=== PATIENT | male | born 1975 | race Caucasian/White ===

== ENCOUNTER 2020-07-03 20:00 | Inpatient (IN) | payer OTHER ==
[~2020-07-03] VITALS: Ht 180.3 cm; Wt 214.8 kg
[~2020-07-03 20:00] MED LIST: AMLO10TA8 PO; BC HEADACHE PO; LOSA1TAB22 PO
--- NOTE | 2020-07-03 20:23 | PHYS DOC ---
Past Medical History Past Medical History: Anemia, High Cholesterol, Hypertension Past Surgical History: Tonsillectomy Additional Past Surgical Histo: gastric bypass, Smoking Status: Former Smoker Alcohol Use: Heavy Drug Use: None General Adult EDM: Chief Complaint: CHEST PAIN HPI: HPI: The history was obtained from the patient. Patient is a 41-year-old male with PMH hypertension, morbid obesity, hyperlipidemia, CHF who presents with a chief complaint of shortness of breath. Patient states 3 hours prior to arrival he had sudden onset shortness of breath. He also notes that he drank a pint of whiskey today. He states he did not drink this and attempt to harm himself. 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 He does note some chest pain. He is unable to describe the quality or characteristic of the pain. He states it has been constant. States it is nonradiating however. Denies cough. Does note increased shortness of breath. Unsure of whether his symptoms are worse when he lays flat. Denies vomiting. Denies syncope. Denies any drug usage today. Unsure of why he has heart failure how it developed. Denies any history of blood clot in legs or lungs. Denies any known exposure to coronavirus. Review of Systems: Review of Systems: Constitutional: Denies fever or chills. [] Eyes: Denies change in visual acuity. [] HENT: Denies nasal congestion or sore throat. [] Respiratory: Positive for shortness of Cardiovascular: Positive for chest pain GI: Denies abdominal pain, nausea, vomiting, bloody stools or diarrhea. [] : Denies dysuria. [] Musculoskeletal: Denies back pain or joint pain. [] Integument: Denies rash. [] Neurologic: Denies headache, focal weakness or sensory changes. [] Endocrine: Denies polyuria or polydipsia. [] Lymphatic: Denies swollen glands. [] Psychiatric: Denies depression or anxiety. [] Heart Score: Risk Factors: Risk Factors: DM, Current or recent (<one month) smoker, HTN, HLP, family history of CAD, obesity. Risk Scores: Score 0 - 3: 2.5% MACE over next 6 weeks - Discharge Home Score 4 - 6: 20.3% MACE over next 6 weeks - Admit for Clinical Observation Score 7 - 10: 72.7% MACE over next 6 weeks - Early Invasive Strategies Allergies: Allergies: Allergies Coded Allergies Type Severity Reaction Last Updated Verified No Known Drug Allergies 10/27/14 No Physical Exam: PE: Constitutional: Well developed, well nourished, no acute distress, non-toxic appearance. Morbid obesity HENT: Normocephalic, atraumatic, bilateral external ears normal, oropharynx moist, no oral exudates, nose normal. [] Eyes: PERRLA, EOMI, conjunctiva normal, no discharge. [] Neck: Normal range of motion, no tenderness, supple, no stridor. [] Cardiovascular:Heart rate regular rhythm, no murmur [] Lungs & Thorax: Bilateral breath sounds clear to auscultation [] Abdomen: soft, no tenderness, no masses, no pulsatile masses. [] Skin: Warm, dry, no erythema, no rash. [] Back: No tenderness, no CVA tenderness. [] Extremities: No tenderness, no cyanosis, no clubbing, ROM intact, no edema. [] Neurologic: Alert and oriented X 3, normal motor function, normal sensory function, no focal deficits noted. [] Psychologic: Affect normal, judgement normal, mood normal. [] Current Patient Data: Labs: Laboratory Tests Test 07/03/20 21:39 White Blood Count 6.4 x10^3/uL Red Blood Count 4.88 x10^6/uL Hemoglobin 13.3 g/dL Hematocrit 40.0 % Mean Corpuscular Volume 82 fL Mean Corpuscular Hemoglobin 27 pg Mean Corpuscular Hemoglobin Concent 33 g/dL Red Cell Distribution Width 16.7 % Platelet Count 261 x10^3/uL Neutrophils (%) (Auto) 55 % Lymphocytes (%) (Auto) 35 % Monocytes (%) (Auto) 8 % Eosinophils (%) (Auto) 3 % Basophils (%) (Auto) 0 % Neutrophils # (Auto) 3.5 x10^3/uL Lymphocytes # (Auto) 2.2 x10^3/uL Monocytes # (Auto) 0.5 x10^3/uL Eosinophils # (Auto) 0.2 x10^3/uL Basophils # (Auto) 0.0 x10^3/uL Sodium Level 138 mmol/L Potassium Level 2.2 mmol/L Chloride Level 98 mmol/L Carbon Dioxide Level 27 mmol/L Anion Gap 13 Blood Urea Nitrogen 18 mg/dL Creatinine 1.1 mg/dL Estimated GFR (Cockcroft-Gault) 73.1 BUN/Creatinine Ratio 16 Glucose Level 98 mg/dL Calcium Level 8.5 mg/dL Magnesium Level 1.9 mg/dL Total Bilirubin 0.3 mg/dL Aspartate Amino Transf (AST/SGOT) 64 U/L Alanine Aminotransferase (ALT/SGPT) 89 U/L Alkaline Phosphatase 93 U/L [id number] Natriuretic Peptide 34 pg/mL Total Protein 7.3 g/dL Albumin 3.6 g/dL Albumin/Globulin Ratio 1.0 Lipase 299 U/L Ethyl Alcohol Level 250 mg/dL Current Medications Medications (Trade) Dose Ordered Sig/Josh Route PRN Reason Start Time Stop Time Status Last Admin Dose Admin Magnesium Sulfate 50 ml @ 50 mls/hr 1X ONCE IV 07/03/20 23:00 07/03/20 23:59 DC 07/03/20 23:54 Potassium Chloride/Dextrose/ Sod Cl 1,000 ml @ 1,000 mls/hr Q1H ONCE IV 07/03/20 22:30 07/03/20 23:29 UNV Potassium Chloride/Water 100 ml @ 100 mls/hr Q1H IV 07/03/20 23:00 07/04/20 04:59 07/03/20 23:04 Nitroglycerin (Nitrostat) 0.4 mg PRN Q5MIN PRN SL CHEST PAIN 07/03/20 22:30 Iohexol (Omnipaque 350 Mg/ml) 100 ml 1X ONCE IV 07/03/20 23:00 07/03/20 23:01 DC 07/03/20 23:29 Info (CONTRAST GIVEN -- Rx MONITORING) 1 each PRN DAILY PRN MC SEE COMMENTS 07/03/20 22:45 07/05/20 22:44 Ringer's Solution 1,000 ml @ 1,000 mls/hr 1X ONCE IV 07/03/20 23:00 07/03/20 23:59 DC 07/03/20 23:05 EKG: EKG: EKG consistent with normal sinus rhythm. Ventricular rate of 64 bpm. Q waves noted in lead III. Slight ST flattening noted in lead III as well. No ST segment elevation appreciated. [] Radiology/Procedures: Radiology/Procedures: [][facility] [address] [place] [address] IMAGING REPORT Signed PATIENT: FABIOLA MCQUEEN ACCOUNT: [id number] : 1975 LOCATION: ER AGE: 44 SEX: M EXAM STATUS: REG ER ORD. PHYSICIAN: VINAY CARVALHO DO REASON: SOB with h/x CHF. r/o pulm edema vs. PE OMNI 350, 100 ML IV PROCEDURE: CT ANGIOGRAPHY CHEST Study: CT CHEST WITH CONTRAST - PULMONARY ANGIOGRAM History: Shortness of breath. CHF. Pulmonary embolism. Comparison: None. Technique: Helical CT of the chest performed after the administration of 100 cc Omnipaque 350 intravenous contrast and timed for angiographic evaluation of the pulmonary arteries per PE protocol. Coronal and sagittal 3D MIP reformations were obtained. One or more of the following individualized dose reduction techniques were utilized for this examination: 1. Automated exposure control 2. Adjustment of the mA and/or kV according to patient size 3. Use of iterative reconstruction technique. Findings: Pulmonary Arteries: Limited study for the detection of pulmonary emboli due to a combination of patient body habitus and bolus timing. No main or lobar embolism is seen. The main pulmonary artery is dilated at approximately 4.1 cm transverse. Heart/Systemic Vasculature: Nonaneurysmal aorta. The visualized great vessels are unremarkable. Mediastinum: Small hiatal hernia. No pathologically enlarged lymph nodes. Lungs: No localized airspace infiltrate. No abnormal thickening of the interlobular septa. No pleural effusion or pneumothorax. The central airways are patent. A few tiny nodules are seen but do not meet size criteria for dedicated follow-up. 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 Neck/Axilla/Body Wall: Portions of the body wall are excluded from the [id number]. No acute abnormality is seen. Upper Abdomen: Hepatic steatosis. Mildly enlarged spleen. Surgically absent gallbladder. Bariatric surgery. Bones: No acute or aggressive osseous process is well identified but assessment is limited. Scattered Schmorl's nodes. Straightening of thoracic kyphosis. Miscellaneous: None. IMPRESSION: 1. Limited study due to patient body habitus and bolus timing. No main or lobar pulmonary embolus and is seen. The smaller pulmonary arteries are not well assessed. 2. Dilated main pulmonary artery as can be seen with underlying pulmonary hypertension. 3. No CT manifestations of decompensated congestive heart failure. 4. Hepatic steatosis and mild splenomegaly. Electronically signed by: BA MALAVE MD (07/04/2020 12:18 AM) [id number] DICTATED and SIGNED BY: BA MALAVE MD DATE: 07/04/20 0018 Course & Med Decision Making: Course & Med Decision Making Pertinent Labs and Imaging studies reviewed. (See chart for details) Patient is a 43-year-old male who presents with complaint of shortness of breath chest pain. Initial vital signs grossly unremarkable. EKG without ischemic changes. 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 Although there was poor bolus timing of the contrast material no obvious signs of PE were noted. He does have a dilated pulmonary artery however I believe this is most likely related to heart failure. Low suspicion for large PE given his normal vital signs. Patient found to have low potassium. Replacement of this was started. He was given 2 g of magnesium. Alcohol level noted to be elevated. Patient is low potassium could be related to diuretic usage or poor oral intake. Patient will be hospitalized for further care. Dragon Disclaimer: Dragon Disclaimer: This electronic medical record was generated, in whole or in part, using a voice recognition dictation system. Departure Departure Impression: Primary Impression: Hypokalemia Additional Impressions: Alcohol intoxication Qualified Codes: F10.929 - Alcohol use, unspecified with intoxication, unspecified Chest pain Qualified Codes: R07.9 - Chest pain, unspecified Disposition: ADMITTED INPATIENT Condition: STABLE Referrals: NO PCP (PCP) Justicifation of Admission Dx: Justifications for Admission: Justification of Admission Dx: Yes Chronic Renal Failure: Electrolyte Abnormality Angina: Cresendo Worsening of Sym VINAY CARVALHO DO Jul 03, 2020 20:23
--- NOTE | 2020-07-03 20:38 | RAD ---
CHEST AP ONLY History: Reason: CP / Spl. Instructions: / History: Comparison: October 27, 2014 Findings: Low lung volumes. Enlarged cardiac size although portable technique accentuates cardiac size, unchanged. No consolidation or pleural effusion. No pneumothorax. Impression: 1. Low lung volumes. Electronically signed by: Andrés Fajardo DO (07/03/2020 8:35 PM) [facility] [place]
[2020-07-03 21:56] LABS: BASO % 0 % (0-3); EOS # 0.2 x10^3/uL (0.0-0.7); EOS % 3 % (0-3); HEMOGLOBIN 13.3 g/dL (13.0-17.5); LYMPH # 2.2 x10^3/uL (1.0-4.8); LYMPH % 35 % (24-48); MEAN CORPUSCULAR HEMOGLOBIN 27 pg (25-35); MEAN CORPUSCULAR HGB CONC 33 g/dL (31-37); MEAN CORPUSCULAR VOLUME 82 fL (79-100); MONO # 0.5 x10^3/uL (0.0-1.1); MONO % 8 % (0-9); NEUT # 3.5 x10^3/uL (1.8-7.7); NEUT % 55 % (31-73); PLATELET COUNT 261 x10^3/uL (140-400); RED BLOOD COUNT 4.88 x10^6/uL (4.30-5.70); RED CELL DISTRIBUTION WIDTH 16.7 % (11.5-14.5); WHITE BLOOD COUNT 6.4 x10^3/uL (4.0-11.0)
[2020-07-03 22:13] LABS: ALBUMIN 3.6 g/dL (3.4-5.0); CALCIUM 8.5 mg/dL (8.5-10.1); CREATININE 1.1 mg/dL (0.7-1.3); GFR 73.1; TOTAL BILIRUBIN 0.3 mg/dL (0.2-1.0); TOTAL PROTEIN 7.3 g/dL (6.4-8.2)
[2020-07-03 22:21] LABS: POTASSIUM 2.2 mmol/L (3.5-5.1)
[2020-07-03] MEDS ORDERED: POTASSIUM CL 20MEQ D5-0.2%NACL 1,000 ML IV ONE (22:30)
[2020-07-03] MEDS ORDERED: NITROGLYCERIN SUBLINGUAL 0.4 MG BOTTLE OF 25. SL PRN (22:30)
[2020-07-03] MEDS ORDERED: CONTRAST GIVEN. MC PRN (22:45)
[2020-07-03] MEDS ORDERED: IV RINGERS,LACTATED 1000ML 1,000 ML IV ONE (23:00)
[2020-07-03] MEDS ORDERED: IOHEXOL 350 MG/ML 100 ML VIAL. IV ONE (23:00)
[2020-07-03] MEDS ORDERED: MAGNESIUM SULFATE 2GM 50 ML IV ONE (23:00)
[2020-07-03] MEDS: POTASSIUM CHLORIDE 10MEQ 100 ML IV SCH (23:04)
--- NOTE | 2020-07-04 00:21 | RAD ---
Study: CT CHEST WITH CONTRAST - PULMONARY ANGIOGRAM History: Shortness of breath. CHF. Pulmonary embolism. Comparison: None. Technique: Helical CT of the chest performed after the administration of 100 cc Omnipaque 350 intravenous contrast and timed for angiographic evaluation of the pulmonary arteries per PE protocol. Coronal and sagittal 3D MIP reformations were obtained. One or more of the following individualized dose reduction techniques were utilized for this examination: 1. Automated exposure control 2. Adjustment of the mA and/or kV according to patient size 3. Use of iterative reconstruction technique. Findings: Pulmonary Arteries: Limited study for the detection of pulmonary emboli due to a combination of patient body habitus and bolus timing. No main or lobar embolism is seen. The main pulmonary artery is dilated at approximately 4.1 cm transverse. Heart/Systemic Vasculature: Nonaneurysmal aorta. The visualized great vessels are unremarkable. Mediastinum: Small hiatal hernia. No pathologically enlarged lymph nodes. Lungs: No localized airspace infiltrate. No abnormal thickening of the interlobular septa. No pleural effusion or pneumothorax. The central airways are patent. A few tiny nodules are seen but do not meet size criteria for dedicated follow-up. Solutions Operator nodule at the far inferior left lower lobe on image 130 series 5. Neck/Axilla/Body Wall: Portions of the body wall are excluded from the [id number]. No acute abnormality is seen. Upper Abdomen: Hepatic steatosis. Mildly enlarged spleen. Surgically absent gallbladder. Bariatric surgery. Bones: No acute or aggressive osseous process is well identified but assessment is limited. Scattered Schmorl's nodes. Straightening of thoracic kyphosis. Miscellaneous: None. IMPRESSION: 1. Limited study due to patient body habitus and bolus timing. No main or lobar pulmonary embolus and is seen. The smaller pulmonary arteries are not well assessed. 2. Dilated main pulmonary artery as can be seen with underlying pulmonary hypertension. 3. No CT manifestations of decompensated congestive heart failure. 4. Hepatic steatosis and mild splenomegaly. Electronically signed by: BA MALAVE MD (07/04/2020 12:18 AM) [facility]
[2020-07-04] MEDS ORDERED: ONDANSETRON PF 4 MG/2 ML VIAL. IV PRN (00:45)
[2020-07-04] MEDS: POTASSIUM CHLORIDE 10MEQ 100 ML IV SCH ×7 (00:54→21:03)
[2020-07-04] MEDS ORDERED: HYDR-2869 PO (09:23)
[2020-07-04] MEDS ORDERED: FURO-69 PO (09:23)
[2020-07-04] MEDS: ACETAMINOPHEN 500 MG TABLET PO PRN (11:06)
[2020-07-04] MEDS: LIDOCAINE (700MG/PATCH) PATCH. TD SCH (11:07)
[2020-07-04] MEDS ORDERED: POTASSIUM CHLORIDE 20 MEQ TABLET.ER. PO PRN (13:00)
[2020-07-04] MEDS ORDERED: POTASSIUM CHLORIDE 10MEQ 100 ML IV PRN (13:00)
--- NOTE | 2020-07-04 13:03 | PDOC1 ---
History and Physical Date of Service: DOS: DATE: 07/04/20 TIME: 13:00 Chief Complaint: Chief Complain: Chest pain History of Present Illness: HPI: Patient is a 41-year-old male with past medical history of hypertension, morbid obesity status post gastric bypass, CHF, MANUELA on CPAP who presents with complaints of shortness of breath and chest pressure 3 hours prior to arrival. Patient also states that he did drink a pint of whiskey before his episode of chest pain. Patient states that the pain is difficult to explain it does occur substernal and does not radiate but mainly stays in the middle of his chest. He does endorse shortness of breath associated with the chest pain. Denies orthopnea but states that the chest pressure is worse when he does lie supine. Denies fevers, syncope, nausea vomiting, abdominal pain. Past Medical/Surgical History: PMH/PSH: Past Medical History: Anemia, High Cholesterol, Hypertension, MANUELA on CPAP Past Surgical History: Tonsillectomy, gastric bypass, Allergies: Allergies: Coded Allergies: No Known Drug Allergies (Unverified , 10/27/14) Family History: Family History: Reviewed and none reported Social History: Social History: Smoking Status: Former Smoker Alcohol Use: Heavy Drug Use: None Current Medications: Current Medications Current Medications Magnesium Sulfate 50 ml @ 50 mls/hr 1X ONCE IV Last administered on 07/03/20at 23:54; Start 07/03/20 at 23:00; Stop 07/03/20 at 23:59; Status DC Potassium Chloride/Dextrose/ Sod Cl 1,000 ml @ 1,000 mls/hr Q1H ONCE IV ; S tart 07/03/20 at 22:30; Stop 07/03/20 at 23:29; Status UNV Potassium Chloride/Water 100 ml @ 100 mls/hr Q1H IV Last administered on 07/04/20at 11:57; Start 07/03/20 at 23:00; Stop 07/04/20 at 04:59; Status DC Nitroglycerin (Nitrostat) 0.4 mg PRN Q5MIN PRN SL CHEST PAIN; Start 07/03/20 at 22:30 Iohexol (Omnipaque 350 Mg/ml) 100 ml 1X ONCE IV Last administered on 07/03/20at 23:29; Start 07/03/20 at 23:00; Stop 07/03/20 at 23:01; Status DC Info (CONTRAST GIVEN -- Rx MONITORING) 1 each PRN DAILY PRN MC SEE COMMENTS; Start 07/03/20 at 22:45; Stop 07/05/20 at 22:44 Ringer's Solution 1,000 ml @ 1,000 mls/hr 1X ONCE IV Last administered on 07/03/20at 23:05; Start 07/03/20 at 23:00; Stop 07/03/20 at 23:59; Status DC Ondansetron HCl (Zofran) 4 mg PRN Q8HRS PRN IV NAUSEA/VOMITING 1ST CHOICE; Start 07/04/20 at 00:45; Stop 07/05/20 at 00:44 Acetaminophen (Tylenol) 1,000 mg PRN Q6HRS PRN PO PAIN MILD, FEVER Last administered on 07/04/20at 11:06; Start 07/04/20 at 10:15 Lidocaine (Lidoderm) 1 patch DAILY TD Last administered on 07/04/20at 11:07; Start 07/04/20 at 10:30 Miscellaneous (Lidoderm Patch Removal) 1 ea QHS MC ; Start 07/04/20 at 21:00 Enoxaparin Sodium (Lovenox 60mg Syringe) 60 mg Q12HR SQ ; Start 07/04/20 at 21:00 Pantoprazole Sodium (Protonix) 40 mg DAILYAC PO ; Start 07/05/20 at 07:30; Status UNV Aspirin (Tye Aspirin) 325 mg DAILYWBKFT PO ; Start 07/05/20 at 08:00; Status UNV Potassium Chloride (Klor-Con) 40 meq 1X PRN PO PER PROTOCOL; Start 07/04/20 at 13:00; Status UNV Potassium Chloride/Water 100 ml @ 100 mls/hr Q1H IV ; Start 07/04/20 at 13:00; Stop 07/04/20 at 16:59; Status UNV Potassium Phos/ Sodium Phos (Phos-Nak) 1 pkt BID PO ; Start 07/04/20 at 21:00; Stop 07/05/20 at 09:01; Status UNV Potassium Chloride/Water 100 ml @ 100 mls/hr Q1H PRN IV low K; Start 07/04/20 at 13:00; Status UNV Active Scripts Active Reported Hydralazine Hcl 50 Mg Tablet 1 Tab PO PRN Lasix (Furosemide) 20 Mg Tablet 1 Tab PO DAILY 30 Days [BC Headache Powder] 1 Packet PO PRN TID PRN Losartan-Hctz 100-25 Mg Tab (Losartan/Hydrochlorothiazide) 1 Each Tablet 1 Each PO DAILY Amlodipine Besylate 10 Mg Tablet 10 Mg PO DAILY ROS: Review of Systems Review of System REVIEW OF SYSTEMS: GENERAL: Denies weakness SKIN: No bruising, hair changes or rashes. EYES: No blurred, double or loss of vision. NOSE AND THROAT: No history of nosebleeds, hoarseness or sore throat. HEART: No history of palpitations, chest pain or shortness of breath on exertion. LUNGS: Denies cough, hemoptysis, wheezing or shortness of breath. GASTROINTESTINAL: Denies changes in appetite, nausea, vomiting, diarrhea or constipation. GENITOURINARY: No history of frequency, urgency, hesitancy or nocturia. NEUROLOGIC: Denies history of numbness, tingling, or tremor. PSYCHIATRIC: No history of panic, anxiety or depression. ENDOCRINE: No history of heat or cold intolerance, polyuria or polydipsia. EXTREMITIES: Denies joint pain, pain on walking or stiffness. Physical Exam: Vital Signs: Vital Signs Date Time Temp Pulse Resp B/P (MAP) Pulse Ox O2 Delivery O2 Flow Rate FiO2 07/04/20 09:49 105 20 133/62 (85) 99 BiPAP/CPAP 07/03/20 20:09 98.3 98.3 Physcial Exam: GEN: No apparent distress. Alert and oriented. Obese HEENT: Normal cephalic, atraumatic, external auditory canals are patent EYES: Extraocular muscles are intact, pupil are equally round and reactive to light and accommodation MUSCULOSKELETAL: Well developed , well nourished, good range of motion ENDOCRINE: No thyromegaly was palpated LYMPHATICS: No cervical chain or axillary nodes were noted HEMATOPOIETIC: No bruising NECK: Supple, no JVD, no thyromegaly was noted LUNGS: Clear to auscultation in all lung caro without rhonchi or wheezing HEART: RRR, S!, S2 present. Peripheral pulses intact, no obvious murmurs noted ABDOMEN: Obese soft, nontender. Positive bowel sounds, no organomegaly, normal bowel sounds EXTREMITIES: Without clubbing, cyanosis, or edema. Pedal pulses intact. Negative Homans sign NEUROLOGIC: Normal speech and tone. A&O x 3, moves all extremities, no obvious focal deficits PSYCHIATRIC: Normal affect, normal mood. Stable SKIN: No ulcerations or rashes, good skin turgor, no jaundice VASCULAR: Good capillary refill, neurovascular bundle appears to be intact Labs: Labs: Laboratory Tests Test 07/03/20 21:39 07/04/20 11:12 White Blood Count 6.4 x10^3/uL (4.0-11.0) Red Blood Count 4.88 x10^6/uL (4.30-5.70) Hemoglobin 13.3 g/dL (13.0-17.5) Hematocrit 40.0 % (39.0-53.0) Mean Corpuscular Volume 82 fL (79-100) Mean Corpuscular Hemoglobin 27 pg (25-35) Mean Corpuscular Hemoglobin Concent 33 g/dL (31-37) Red Cell Distribution Width 16.7 % (11.5-14.5) Platelet Count 261 x10^3/uL (140-400) Neutrophils (%) (Auto) 55 % (31-73) Lymphocytes (%) (Auto) 35 % (24-48) Monocytes (%) (Auto) 8 % (0-9) Eosinophils (%) (Auto) 3 % (0-3) Basophils (%) (Auto) 0 % (0-3) Neutrophils # (Auto) 3.5 x10^3/uL (1.8-7.7) Lymphocytes # (Auto) 2.2 x10^3/uL (1.0-4.8) Monocytes # (Auto) 0.5 x10^3/uL (0.0-1.1) Eosinophils # (Auto) 0.2 x10^3/uL (0.0-0.7) Basophils # (Auto) 0.0 x10^3/uL (0.0-0.2) Sodium Level 138 mmol/L (136-145) Potassium Level 2.2 mmol/L (3.5-5.1) Chloride Level 98 mmol/L (98-107) Carbon Dioxide Level 27 mmol/L (21-32) Anion Gap 13 (6-14) Blood Urea Nitrogen 18 mg/dL (8-26) Creatinine 1.1 mg/dL (0.7-1.3) Estimated GFR (Cockcroft-Gault) 73.1 BUN/Creatinine Ratio 16 (6-20) Glucose Level 98 mg/dL (70-99) Calcium Level 8.5 mg/dL (8.5-10.1) Magnesium Level 1.9 mg/dL (1.8-2.4) Total Bilirubin 0.3 mg/dL (0.2-1.0) Aspartate Amino Transf (AST/SGOT) 64 U/L (15-37) Alanine Aminotransferase (ALT/SGPT) 89 U/L (16-63) Alkaline Phosphatase 93 U/L (46-116) PM-Ell-Q-Type Natriuretic Peptide 34 pg/mL (0-124) Total Protein 7.3 g/dL (6.4-8.2) Albumin 3.6 g/dL (3.4-5.0) Albumin/Globulin Ratio 1.0 (1.0-1.7) Lipase 299 U/L (73-393) Ethyl Alcohol Level 250 mg/dL (0-10) Troponin I Quantitative 0.036 ng/mL (0.000-0.055) Laboratory Tests Test 07/03/20 21:39 07/04/20 11:12 White Blood Count 6.4 x10^3/uL (4.0-11.0) Red Blood Count 4.88 x10^6/uL (4.30-5.70) Hemoglobin 13.3 g/dL (13.0-17.5) Hematocrit 40.0 % (39.0-53.0) Mean Corpuscular Volume 82 fL (79-100) Mean Corpuscular Hemoglobin 27 pg (25-35) Mean Corpuscular Hemoglobin Concent 33 g/dL (31-37) Red Cell Distribution Width 16.7 % (11.5-14.5) Platelet Count 261 x10^3/uL (140-400) Neutrophils (%) (Auto) 55 % (31-73) Lymphocytes (%) (Auto) 35 % (24-48) Monocytes (%) (Auto) 8 % (0-9) Eosinophils (%) (Auto) 3 % (0-3) Basophils (%) (Auto) 0 % (0-3) Neutrophils # (Auto) 3.5 x10^3/uL (1.8-7.7) Lymphocytes # (Auto) 2.2 x10^3/uL (1.0-4.8) Monocytes # (Auto) 0.5 x10^3/uL (0.0-1.1) Eosinophils # (Auto) 0.2 x10^3/uL (0.0-0.7) Basophils # (Auto) 0.0 x10^3/uL (0.0-0.2) Sodium Level 138 mmol/L (136-145) Potassium Level 2.2 mmol/L (3.5-5.1) Chloride Level 98 mmol/L (98-107) Carbon Dioxide Level 27 mmol/L (21-32) Anion Gap 13 (6-14) Blood Urea Nitrogen 18 mg/dL (8-26) Creatinine 1.1 mg/dL (0.7-1.3) Estimated GFR (Cockcroft-Gault) 73.1 BUN/Creatinine Ratio 16 (6-20) Glucose Level 98 mg/dL (70-99) Calcium Level 8.5 mg/dL (8.5-10.1) Magnesium Level 1.9 mg/dL (1.8-2.4) Total Bilirubin 0.3 mg/dL (0.2-1.0) Aspartate Amino Transf (AST/SGOT) 64 U/L (15-37) Alanine Aminotransferase (ALT/SGPT) 89 U/L (16-63) Alkaline Phosphatase 93 U/L (46-116) YH-Sql-[id number]-Type Natriuretic Peptide 34 pg/mL (0-124) Total Protein 7.3 g/dL (6.4-8.2) Albumin 3.6 g/dL (3.4-5.0) Albumin/Globulin Ratio 1.0 (1.0-1.7) Lipase 299 U/L (73-393) Ethyl Alcohol Level 250 mg/dL (0-10) Troponin I Quantitative 0.036 ng/mL (0.000-0.055) Images: Images CXR Impression: 1. Low lung volumes. Chest CTA IMPRESSION: 1. Limited study due to patient body habitus and bolus timing. No main or lobar pulmonary embolus and is seen. The smaller pulmonary arteries are not well assessed. 2. Dilated main pulmonary artery as can be seen with underlying pulmonary hypertension. 3. No CT manifestations of decompensated congestive heart failure. 4. Hepatic steatosis and mild splenomegaly. Assessment/Plan Assessment/Plan Chest pain concerning for unstable angina versus non-STEMI rule out ACS Acute severe hyperkalemia Transaminitis due to hepatic steatosis. Troponinemia Chronic CHF MANUELA Morbid obesity Status post gastric bypass Heart score = 4 Troponinemia Continue aspirin, consider Plavix if intermediate risk will defer this to cardiology Cardiology consulted for predischarge stress testing or left heart cath Continue nitroglycerin as needed for pain Continue beta-william if blood pressures allow Continue high intensity statins IV morphine as needed Restart home medications Continue nocturnal CPAP Maintain O2 sats between 88 to 95% Trend troponins Repeat EKG in the a.m. Continue telemetry monitoring Monitor for electrolyte abnormalities Avoid NSAIDs Lovenox for DVT prophylaxis Pepcid GI prophylaxis ADA diet Full code Discussed with RN and SW Disposition pending cardiology evaluation Surrogate decision maker is Sonal Field Justifications for Admission Other Justification MAO CLINE MD Jul 04, 2020 13:03
[2020-07-04] MEDS ORDERED: PANTOPRAZOLE IV PUSH 40 MG VIAL. IVP ONE (14:28)
[2020-07-04] MEDS ORDERED: ASPIRIN 325 MG TABLET ONE (14:29)
--- NOTE | 2020-07-04 15:25 | PDOC2 ---
CONSULT Date of Consult Date of Consult DATE: 07/04/20 TIME: 15:20 Reason for Consult Reason for Consult: Chest pain, shortness of breath Referring Physician Referring Physician: Dr. Mendoza Identification/Chief Complaint Chief Complaint Shortness of breath Source Source: Chart review, Patient History of Present Illness Reason for Visit: The patient is a 44-year-old male who was admitted last evening through the emergency room with complaints of increasing shortness of breath. Patient also reports some mild travel pressure associated with the shortness of breath. He also reported Umair drank a pint of whiskey prior to his admission and his EtOH level was 250 mg/dL. His EKG showed no acute ischemic changes. CTA scan showed no PE. But his potassium was severely decreased at 2.2 and is being replaced. This morning he is feeling better. He continues to have some shortness of breath. His history is significant for hypertension and hyperlipidemia. He is also significantly obese and has had a previous gastric bypass procedure. Past Medical History Cardiovascular: HTN, Hyperlipidemia GI: Other (Obesity) Past Surgical History Past Surgical History: Other (Previous gastric bypass surgery) Family History Family History: No Significant, Hypertension Social History Quit ALCOHOL: heavy Drugs: None Current Problem List Problem List Problems Medical Problems: (1) Alcohol intoxication Status: Acute (2) Chest pain Status: Acute Current Medications Current Medications Current Medications Magnesium Sulfate 50 ml @ 50 mls/hr 1X ONCE IV Last administered on 07/03/20at 23:54; Start 07/03/20 at 23:00; Stop 07/03/20 at 23:59; Status DC Potassium Chloride/Dextrose/ Sod Cl 1,000 ml @ 1,000 mls/hr Q1H ONCE IV ; Start 07/03/20 at 22:30; Stop 07/03/20 at 23:29; Status UNV Potassium Chloride/Water 100 ml @ 100 mls/hr Q1H IV Last administered on 07/04/20at 11:57; Start 07/03/20 at 23:00; Stop 07/04/20 at 04:59; Status DC Nitroglycerin (Nitrostat) 0.4 mg PRN Q5MIN PRN SL CHEST PAIN; Start 07/03/20 at 22:30 Iohexol (Omnipaque 350 Mg/ml) 100 ml 1X ONCE IV Last administered on 07/03/20at 23:29; Start 07/03/20 at 23:00; Stop 07/03/20 at 23:01; Status DC Info (CONTRAST GIVEN -- Rx MONITORING) 1 each PRN DAILY PRN SEE COMMENTS; Start 07/03/20 at 22:45; Stop 07/05/20 at 22:44 Ringer's Solution 1,000 ml @ 1,000 mls/hr 1X ONCE IV Last administered on 07/03/20at 23:05; Start 07/03/20 at 23:00; Stop 07/03/20 at 23:59; Status DC Ondansetron HCl (Zofran) 4 mg PRN Q8HRS PRN IV NAUSEA/VOMITING 1ST CHOICE; Start 07/04/20 at 00:45; Stop 07/05/20 at 00:44 Acetaminophen (Tylenol) 1,000 mg PRN Q6HRS PRN PO PAIN MILD, FEVER Last administered on 07/04/20at 11:06; Start 07/04/20 at 10:15 Lidocaine (Lidoderm) 1 patch DAILY TD Last administered on 07/04/20at 11:07; Start 07/04/20 at 10:30 Miscellaneous (Lidoderm Patch Removal) 1 ea QHS MC ; Start 07/04/20 at 21:00 Enoxaparin Sodium (Lovenox 60mg Syringe) 60 mg Q12HR SQ ; Start 07/04/20 at 21:00 Pantoprazole Sodium (Protonix) 40 mg DAILYAC PO ; Start 07/05/20 at 07:30 Aspirin (Tye Aspirin) 325 mg DAILYWBKFT PO ; Start 07/05/20 at 08:00 Potassium Chloride (Klor-Con) 40 meq PRN 1X PRN PO PER PROTOCOL; Start 07/04/20 at 13:00 Potassium Chloride/Water 100 ml @ 100 mls/hr Q1H IV ; Start 07/04/20 at 13:30; Stop 07/04/20 at 17:29 Potassium Phos/ Sodium Phos (Phos-Nak) 1 pkt PRN BID PRN PO SEE PHOS PARAMETER; Start 07/04/20 at 21:00 Potassium Chloride/Water 100 ml @ 100 mls/hr PRN Q1HR PRN IV low K, SEE PARAMETERS; Start 07/04/20 at 13:00 Morphine Sulfate (Morphine Sulfate) 2 mg PRN Q2HR PRN IV PAIN; Start 07/04/20 at 13:15 Pantoprazole Sodium (PROTONIX VIAL for IV PUSH) 40 mg STK-MED ONCE IVP ; Start 07/04/20 at 14:28; Stop 07/04/20 at 14:29; Status DC Aspirin (Tye Aspirin) 325 mg STK-MED ONCE .ROUTE ; Start 07/04/20 at 14:29; Stop 07/04/20 at 14:29; Status DC Enoxaparin Sodium (Lovenox 100mg Syringe) 100 mg STK-MED ONCE SQ ; Start 07/04/20 at 14:29; Stop 07/04/20 at 14:29; Status DC Active Scripts Active Reported Hydralazine Hcl 50 Mg Tablet 1 Tab PO PRN Lasix (Furosemide) 20 Mg Tablet 1 Tab PO DAILY 30 Days [BC Headache Powder] 1 Packet PO PRN TID PRN Losartan-Hctz 100-25 Mg Tab (Losartan/Hydrochlorothiazide) 1 Each Tablet 1 Each PO DAILY Amlodipine Besylate 10 Mg Tablet 10 Mg PO DAILY Allergies Allergies: Coded Allergies: No Known Drug Allergies (Unverified , 10/27/14) ROS General: YES: Fatigue Respiratory: YES: Shortness of breath Cardiovascular: yes Chest Pain Physical Exam General: mild distress HEENT: Atraumatic Lungs: Other (Slightly decreased breath sounds) Heart: Regular rate Abdomen: Normal bowel sounds Vitals VITALS Vital Signs Date Time Temp Pulse Resp B/P (MAP) Pulse Ox O2 Delivery O2 Flow Rate FiO2 07/04/20 09:49 105 20 133/62 (85) 99 BiPAP/CPAP 07/03/20 20:09 98.3 98.3 Labs Labs Laboratory Tests Test 07/03/20 21:39 07/04/20 11:12 White Blood Count 6.4 x10^3/uL (4.0-11.0) Red Blood Count 4.88 x10^6/uL (4.30-5.70) Hemoglobin 13.3 g/dL (13.0-17.5) Hematocrit 40.0 % (39.0-53.0) Mean Corpuscular Volume 82 fL (79-100) Mean Corpuscular Hemoglobin 27 pg (25-35) Mean Corpuscular Hemoglobin Concent 33 g/dL (31-37) Red Cell Distribution Width 16.7 % (11.5-14.5) Platelet Count 261 x10^3/uL (140-400) Neutrophils (%) (Auto) 55 % (31-73) Lymphocytes (%) (Auto) 35 % (24-48) Monocytes (%) (Auto) 8 % (0-9) Eosinophils (%) (Auto) 3 % (0-3) Basophils (%) (Auto) 0 % (0-3) Neutrophils # (Auto) 3.5 x10^3/uL (1.8-7.7) Lymphocytes # (Auto) 2.2 x10^3/uL (1.0-4.8) Monocytes # (Auto) 0.5 x10^3/uL (0.0-1.1) Eosinophils # (Auto) 0.2 x10^3/uL (0.0-0.7) Basophils # (Auto) 0.0 x10^3/uL (0.0-0.2) Sodium Level 138 mmol/L (136-145) Potassium Level 2.2 mmol/L (3.5-5.1) Chloride Level 98 mmol/L (98-107) Carbon Dioxide Level 27 mmol/L (21-32) Anion Gap 13 (6-14) Blood Urea Nitrogen 18 mg/dL (8-26) Creatinine 1.1 mg/dL (0.7-1.3) Estimated GFR (Cockcroft-Gault) 73.1 BUN/Creatinine Ratio 16 (6-20) Glucose Level 98 mg/dL (70-99) Calcium Level 8.5 mg/dL (8.5-10.1) Magnesium Level 1.9 mg/dL (1.8-2.4) Total Bilirubin 0.3 mg/dL (0.2-1.0) Aspartate Amino Transf (AST/SGOT) 64 U/L (15-37) Alanine Aminotransferase (ALT/SGPT) 89 U/L (16-63) Alkaline Phosphatase 93 U/L (46-116) RE-Rmc-Q-Type Natriuretic Peptide 34 pg/mL (0-124) Total Protein 7.3 g/dL (6.4-8.2) Albumin 3.6 g/dL (3.4-5.0) Albumin/Globulin Ratio 1.0 (1.0-1.7) Lipase 299 U/L (73-393) Ethyl Alcohol Level 250 mg/dL (0-10) Troponin I Quantitative 0.036 ng/mL (0.000-0.055) Laboratory Tests Test 07/03/20 21:39 07/04/20 11:12 White Blood Count 6.4 x10^3/uL (4.0-11.0) Red Blood Count 4.88 x10^6/uL (4.30-5.70) Hemoglobin 13.3 g/dL (13.0-17.5) Hematocrit 40.0 % (39.0-53.0) Mean Corpuscular Volume 82 fL (79-100) Mean Corpuscular Hemoglobin 27 pg (25-35) Mean Corpuscular Hemoglobin Concent 33 g/dL (31-37) Red Cell Distribution Width 16.7 % (11.5-14.5) Platelet Count 261 x10^3/uL (140-400) Neutrophils (%) (Auto) 55 % (31-73) Lymphocytes (%) (Auto) 35 % (24-48) Monocytes (%) (Auto) 8 % (0-9) Eosinophils (%) (Auto) 3 % (0-3) Basophils (%) (Auto) 0 % (0-3) Neutrophils # (Auto) 3.5 x10^3/uL (1.8-7.7) Lymphocytes # (Auto) 2.2 x10^3/uL (1.0-4.8) Monocytes # (Auto) 0.5 x10^3/uL (0.0-1.1) Eosinophils # (Auto) 0.2 x10^3/uL (0.0-0.7) Basophils # (Auto) 0.0 x10^3/uL (0.0-0.2) Sodium Level 138 mmol/L (136-145) Potassium Level 2.2 mmol/L (3.5-5.1) Chloride Level 98 mmol/L (98-107) Carbon Dioxide Level 27 mmol/L (21-32) Anion Gap 13 (6-14) Blood Urea Nitrogen 18 mg/dL (8-26) Creatinine 1.1 mg/dL (0.7-1.3) Estimated GFR (Cockcroft-Gault) 73.1 BUN/Creatinine Ratio 16 (6-20) Glucose Level 98 mg/dL (70-99) Calcium Level 8.5 mg/dL (8.5-10.1) Magnesium Level 1.9 mg/dL (1.8-2.4) Total Bilirubin 0.3 mg/dL (0.2-1.0) Aspartate Amino Transf (AST/SGOT) 64 U/L (15-37) Alanine Aminotransferase (ALT/SGPT) 89 U/L (16-63) Alkaline Phosphatase 93 U/L (46-116) HZ-Mdi-N-Type Natriuretic Peptide 34 pg/mL (0-124) Total Protein 7.3 g/dL (6.4-8.2) Albumin 3.6 g/dL (3.4-5.0) Albumin/Globulin Ratio 1.0 (1.0-1.7) Lipase 299 U/L (73-393) Ethyl Alcohol Level 250 mg/dL (0-10) Troponin I Quantitative 0.036 ng/mL (0.000-0.055) Images Images CT a showed no evidence of a pulmonary embolism Assessment/Plan Assessment/Plan 1. Severe hypokalemia. Level of 2.2. Being aggressively replaced by the rimary service. 2. Shortness of breath and episodes of chest discomfort. No acute ischemic EKG changes. Initial troponin is not significantly elevated. Will trend troponin. Recheck EKG tomorrow once his potassium level has normalized. We will check an echocardiogram for LV function. 3. Acute alcohol intoxication. Initial level on admission was 250 mg/dL. Continue supportive care. 4. Hypertension. Reasonably controlled this morning. Continue to monitor. 5. Hyperlipidemia. Monitoring lipid panel. 6. Morbid obesity status post previous gastric bypass surgery. Thank you for allowing us to participate in the care of your patient RYLEY FOSTER MD Jul 04, 2020 15:25
[2020-07-04 19:00] VITALS: BP 156/91
[2020-07-04] MEDS: PATCH REMOVAL. MC SCH (21:00)
[2020-07-04] MEDS ORDERED: POTASSIUM & SODIUM PHOSPHATES PACKET. PO PRN (21:00)
[2020-07-04] MEDS: MORPHINE SULFATE 2 MG/ML VIAL. IV PRN (21:04)
[2020-07-04 23:00] VITALS: BP 148/76
[2020-07-05] MEDS: POTASSIUM CHLORIDE 10MEQ 100 ML IV SCH ×5 (00:56→22:06)
[2020-07-05 03:00] VITALS: BP 147/90
[2020-07-05 04:40] LABS: BASO % 0 % (0-3); EOS # 0.2 x10^3/uL (0.0-0.7); EOS % 3 % (0-3); HEMATOCRIT 38.7 % (39.0-53.0); HEMOGLOBIN 12.8 g/dL (13.0-17.5); LYMPH # 1.5 x10^3/uL (1.0-4.8); LYMPH % 32 % (24-48); MEAN CORPUSCULAR HEMOGLOBIN 27 pg (25-35); MEAN CORPUSCULAR HGB CONC 33 g/dL (31-37); MEAN CORPUSCULAR VOLUME 83 fL (79-100); MONO # 0.5 x10^3/uL (0.0-1.1); MONO % 10 % (0-9); NEUT # 2.6 x10^3/uL (1.8-7.7); NEUT % 54 % (31-73); PLATELET COUNT 218 x10^3/uL (140-400); RED BLOOD COUNT 4.69 x10^6/uL (4.30-5.70); WHITE BLOOD COUNT 4.8 x10^3/uL (4.0-11.0)
[2020-07-05 04:59] LABS: CALCIUM 8.2 mg/dL (8.5-10.1); CREATININE 1.1 mg/dL (0.7-1.3); GFR 73.1
[2020-07-05 05:16] LABS: POTASSIUM 2.9 mmol/L (3.5-5.1)
--- NOTE | 2020-07-05 05:25 | NUR ---
Critical potassium of 2.9 called to this RN. Labs were drawn prior to last bag of potassium being administered, per order placed by Dr. Back, this RN will order a redraw 3 hours post administration of final bag. Yesterday, rate was dropped to 35 ml/hr d/t intolerance of infusion, patient stated it burnt going any faster. This RN has infused 3/4 bags, with the first 1/4 being infused during dayshift. MD was not notified of critical d/t the forementioned.
[2020-07-05 07:15] VITALS: BP 142/92
[2020-07-05] MEDS: LIDOCAINE (700MG/PATCH) PATCH. TD SCH (08:48)
[2020-07-05] MEDS: ASPIRIN 325 MG TABLET PO SCH (08:49)
[2020-07-05] MEDS: PANTOPRAZOLE 40 MG TABLET.DR. PO SCH (08:49)
--- NOTE | 2020-07-05 08:56 | EKG ---
[facility] [address] [place] [address] Test Date: 2020-07-05 Test Time: 08:55:58 Pat Name: FABIOLA MCQUEEN Department: Room: ED HOLD 2 Gender: M [employer]: : 1975 Requested By: RYLEY FOSTER Order Number: [id number] Reading MD: Measurements Intervals [place] Rate: 79 P: 65 DE: 176 QRS: 31 QRSD: 102 T: 3 QT: 408 QTc: 469 Interpretive Statements SINUS RHYTHM QRS(T) CONTOUR ABNORMALITY CONSISTENT WITH INFERIOR INFARCT PROBABLY OLD ABNORMAL ECG RI6.01 No previous ECG available for comparison
[2020-07-05 11:35] VITALS: BP 140/85
[2020-07-05 12:25] LABS: CALCIUM 8.3 mg/dL (8.5-10.1); CREATININE 1.1 mg/dL (0.7-1.3); GFR 73.1; MAGNESIUM 2.3 mg/dL (1.8-2.4); PHOSPHORUS 3.4 mg/dL (2.6-4.7)
[2020-07-05 12:31] LABS: POTASSIUM 2.9 mmol/L (3.5-5.1)
--- NOTE | 2020-07-05 14:20 | PDOC ---
PROGRESS NOTES Date of Service DATE: 07/05/20 TIME: 14:18 Subjective Subjective Patient seen and examined Objective Objective Vital Signs Date Time Temp Pulse Resp B/P (MAP) Pulse Ox O2 Delivery O2 Flow Rate FiO2 07/05/20 11:35 98.4 68 20 140/85 (103) 95 Room Air 98.4 Intake and Output 07/05/20 07:00 Intake Total 600 ml Output Total 1975 ml Balance -1375 ml Intake Oral 400 ml IV Total 200 ml Output Urine Total 1975 ml # Voids 1 Physical Exam Abdomen: Normal bowel sounds Heart: Regular rate General: No acute distress Lungs: Clear to auscultation Assessment Assessment Problems Medical Problems: (1) Alcohol intoxication Status: Acute (2) Chest pain Status: Acute 1. Severe hypokalemia. Level of 2.2. Patient was replaced but is still at 2.9. Patient's nurse is discussing with his primary. 2. Shortness of breath and episodes of chest discomfort. No acute ischemic EKG changes. Troponin is not significantly elevated. Patient looks and feels well today with no chest pain. Echocardiogram today. Outpatient ischemia work-up. 3. Acute alcohol intoxication. Initial level on admission was 250 mg/dL. Continue supportive care. 4. Hypertension. Reasonably controlled. Continue to monitor. 5. Hyperlipidemia. Monitoring lipid panel. 6. Morbid obesity status post previous gastric bypass surgery. Comment Review of Relevant I have reviewed the following items andreia (where applicable) has been applied. Labs Laboratory Tests Test 07/03/20 21:39 07/04/20 11:12 07/05/20 04:00 White Blood Count 6.4 x10^3/uL (4.0-11.0) 4.8 x10^3/uL (4.0-11.0) Red Blood Count 4.88 x10^6/uL (4.30-5.70) 4.69 x10^6/uL (4.30-5.70) Hemoglobin 13.3 g/dL (13.0-17.5) 12.8 g/dL (13.0-17.5) Hematocrit 40.0 % (39.0-53.0) 38.7 % (39.0-53.0) Mean Corpuscular Volume 82 fL (79-100) 83 fL (79-100) Mean Corpuscular Hemoglobin 27 pg (25-35) 27 pg (25-35) Mean Corpuscular Hemoglobin Concent 33 g/dL (31-37) 33 g/dL (31-37) Red Cell Distribution Width 16.7 % (11.5-14.5) 17.0 % (11.5-14.5) Platelet Count 261 x10^3/uL (140-400) 218 x10^3/uL (140-400) Neutrophils (%) (Auto) 55 % (31-73) 54 % (31-73) Lymphocytes (%) (Auto) 35 % (24-48) 32 % (24-48) Monocytes (%) (Auto) 8 % (0-9) 10 % (0-9) Eosinophils (%) (Auto) 3 % (0-3) 3 % (0-3) Basophils (%) (Auto) 0 % (0-3) 0 % (0-3) Neutrophils # (Auto) 3.5 x10^3/uL (1.8-7.7) 2.6 x10^3/uL (1.8-7.7) Lymphocytes # (Auto) 2.2 x10^3/uL (1.0-4.8) 1.5 x10^3/uL (1.0-4.8) Monocytes # (Auto) 0.5 x10^3/uL (0.0-1.1) 0.5 x10^3/uL (0.0-1.1) Eosinophils # (Auto) 0.2 x10^3/uL (0.0-0.7) 0.2 x10^3/uL (0.0-0.7) Basophils # (Auto) 0.0 x10^3/uL (0.0-0.2) 0.0 x10^3/uL (0.0-0.2) Sodium Level 138 mmol/L (136-145) 141 mmol/L (136-145) Potassium Level 2.2 mmol/L (3.5-5.1) 2.9 mmol/L (3.5-5.1) Chloride Level 98 mmol/L (98-107) 103 mmol/L (98-107) Carbon Dioxide Level 27 mmol/L (21-32) 30 mmol/L (21-32) Anion Gap 13 (6-14) 8 (6-14) Blood Urea Nitrogen 18 mg/dL (8-26) 17 mg/dL (8-26) Creatinine 1.1 mg/dL (0.7-1.3) 1.1 mg/dL (0.7-1.3) Estimated GFR (Cockcroft-Gault) 73.1 73.1 BUN/Creatinine Ratio 16 (6-20) Glucose Level 98 mg/dL (70-99) 96 mg/dL (70-99) Calcium Level 8.5 mg/dL (8.5-10.1) 8.3 mg/dL (8.5-10.1) Magnesium Level 1.9 mg/dL (1.8-2.4) 2.3 mg/dL (1.8-2.4) Total Bilirubin 0.3 mg/dL (0.2-1.0) Aspartate Amino Transf (AST/SGOT) 64 U/L (15-37) Alanine Aminotransferase (ALT/SGPT) 89 U/L (16-63) Alkaline Phosphatase 93 U/L (46-116) MQ-Hrd-H-Type Natriuretic Peptide 34 pg/mL (0-124) Total Protein 7.3 g/dL (6.4-8.2) Albumin 3.6 g/dL (3.4-5.0) Albumin/Globulin Ratio 1.0 (1.0-1.7) Lipase 299 U/L (73-393) Ethyl Alcohol Level 250 mg/dL (0-10) Troponin I Quantitative 0.036 ng/mL (0.000-0.055) 0.045 ng/mL (0.000-0.055) Phosphorus Level 3.4 mg/dL (2.6-4.7) Triglycerides Level 192 mg/dL (0-150) Cholesterol Level 198 mg/dL (0-200) LDL Cholesterol, Calculated 111 mg/dL (0-100) VLDL Cholesterol, Calculated 38 mg/dL (0-40) Non-HDL Cholesterol Calculated 149 mg/dL (0-129) HDL Cholesterol 49 mg/dL (40-60) Cholesterol/HDL Ratio 4.0 Laboratory Tests Test 07/05/20 04:00 White Blood Count 4.8 x10^3/uL (4.0-11.0) Red Blood Count 4.69 x10^6/uL (4.30-5.70) Hemoglobin 12.8 g/dL (13.0-17.5) Hematocrit 38.7 % (39.0-53.0) Mean Corpuscular Volume 83 fL (79-100) Mean Corpuscular Hemoglobin 27 pg (25-35) Mean Corpuscular Hemoglobin Concent 33 g/dL (31-37) Red Cell Distribution Width 17.0 % (11.5-14.5) Platelet Count 218 x10^3/uL (140-400) Neutrophils (%) (Auto) 54 % (31-73) Lymphocytes (%) (Auto) 32 % (24-48) Monocytes (%) (Auto) 10 % (0-9) Eosinophils (%) (Auto) 3 % (0-3) Basophils (%) (Auto) 0 % (0-3) Neutrophils # (Auto) 2.6 x10^3/uL (1.8-7.7) Lymphocytes # (Auto) 1.5 x10^3/uL (1.0-4.8) Monocytes # (Auto) 0.5 x10^3/uL (0.0-1.1) Eosinophils # (Auto) 0.2 x10^3/uL (0.0-0.7) Basophils # (Auto) 0.0 x10^3/uL (0.0-0.2) Sodium Level 141 mmol/L (136-145) Potassium Level 2.9 mmol/L (3.5-5.1) Chloride Level 103 mmol/L (98-107) Carbon Dioxide Level 30 mmol/L (21-32) Anion Gap 8 (6-14) Blood Urea Nitrogen 17 mg/dL (8-26) Creatinine 1.1 mg/dL (0.7-1.3) Estimated GFR (Cockcroft-Gault) 73.1 Glucose Level 96 mg/dL (70-99) Calcium Level 8.3 mg/dL (8.5-10.1) Phosphorus Level 3.4 mg/dL (2.6-4.7) Magnesium Level 2.3 mg/dL (1.8-2.4) Troponin I Quantitative 0.045 ng/mL (0.000-0.055) Triglycerides Level 192 mg/dL (0-150) Cholesterol Level 198 mg/dL (0-200) LDL Cholesterol, Calculated 111 mg/dL (0-100) VLDL Cholesterol, Calculated 38 mg/dL (0-40) Non-HDL Cholesterol Calculated 149 mg/dL (0-129) HDL Cholesterol 49 mg/dL (40-60) Cholesterol/HDL Ratio 4.0 Medications Current Medications Magnesium Sulfate 50 ml @ 50 mls/hr 1X ONCE IV Last administered on 07/03/20at 23:54; Start 07/03/20 at 23:00; Stop 07/03/20 at 23:59; Status DC Potassium Chloride/Dextrose/ Sod Cl 1,000 ml @ 1,000 mls/hr Q1H ONCE IV ; Start 07/03/20 at 22:30; Stop 07/03/20 at 23:29; Status UNV Potassium Chloride/Water 100 ml @ 100 mls/hr Q1H IV Last administered on 07/04/20at 11:57; Start 07/03/20 at 23:00; Stop 07/04/20 at 04:59; Status DC Nitroglycerin (Nitrostat) 0.4 mg PRN Q5MIN PRN SL CHEST PAIN; Start 07/03/20 at 22:30 Iohexol (Omnipaque 350 Mg/ml) 100 ml 1X ONCE IV Last administered on 07/03/20at 23:29; Start 07/03/20 at 23:00; Stop 07/03/20 at 23:01; Status DC Info (CONTRAST GIVEN -- Rx MONITORING) 1 each PRN DAILY PRN MC SEE COMMENTS; Start 07/03/20 at 22:45; Stop 07/05/20 at 22:44 Ringer's Solution 1,000 ml @ 1,000 mls/hr 1X ONCE IV Last administered on 07/03/20at 23:05; Start 07/03/20 at 23:00; Stop 07/03/20 at 23:59; Status DC Ondansetron HCl (Zofran) 4 mg PRN Q8HRS PRN IV NAUSEA/VOMITING 1ST CHOICE; Start 07/04/20 at 00:45; Stop 07/05/20 at 00:44; Status DC Acetaminophen (Tylenol) 1,000 mg PRN Q6HRS PRN PO PAIN MILD, FEVER Last administered on 07/04/20at 11:06; Start 07/04/20 at 10:15 Lidocaine (Lidoderm) 1 patch DAILY TD Last administered on 07/05/20at 08:48; Start 07/04/20 at 10:30 Miscellaneous (Lidoderm Patch Removal) 1 ea QHS MC Last administered on 07/04/20at 21:00; Start 07/04/20 at 21:00 Enoxaparin Sodium (Lovenox 60mg Syringe) 60 mg Q12HR SQ Last administered on 07/05/20at 08:49; Start 07/04/20 at 21:00 Pantoprazole Sodium (Protonix) 40 mg DAILYAC PO Last administered on 07/05/20at 08:49; Start 07/05/20 at 07:30 Aspirin (SiteBrand Aspirin) 325 mg DAILYWBKFT PO Last administered on 07/05/20at 08:49; Start 07/05/20 at 08:00 Potassium Chloride (Klor-Con) 40 meq PRN 1X PRN PO PER PROTOCOL; Start 07/04/20 at 13:00 Potassium Chloride/Water 100 ml @ 100 mls/hr Q1H IV Last administered on 07/05/20at 04:09; Start 07/04/20 at 13:30; Stop 07/04/20 at 17:29; Status DC Potassium Phos/ Sodium Phos (Phos-Nak) 1 pkt PRN BID PRN PO SEE PHOS PARAMETER; Start 07/04/20 at 21:00 Potassium Chloride/Water 100 ml @ 100 mls/hr PRN Q1HR PRN IV low K, SEE PARAMETERS; Start 07/04/20 at 13:00 Morphine Sulfate (Morphine Sulfate) 2 mg PRN Q2HR PRN IV PAIN Last administered on 07/04/20at 21:04; Start 07/04/20 at 13:15 Pantoprazole Sodium (PROTONIX VIAL for IV PUSH) 40 mg STK-MED ONCE IVP ; Start 07/04/20 at 14:28; Stop 07/04/20 at 14:29; Status DC Aspirin (SiteBrand Aspirin) 325 mg STK-MED ONCE .ROUTE ; Start 07/04/20 at 14:29; Stop 07/04/20 at 14:29; Status DC Enoxaparin Sodium (Lovenox 100mg Syringe) 100 mg STK-MED ONCE SQ ; Start 07/04/20 at 14:29; Stop 07/04/20 at 14:29; Status DC Active Scripts Active Reported Hydralazine Hcl 50 Mg Tablet 1 Tab PO PRN Lasix (Furosemide) 20 Mg Tablet 1 Tab PO DAILY 30 Days [BC Headache Powder] 1 Packet PO PRN TID PRN Losartan-Hctz 100-25 Mg Tab (Losartan/Hydrochlorothiazide) 1 Each Tablet 1 Each PO DAILY Amlodipine Besylate 10 Mg Tablet 10 Mg PO DAILY Vitals/I & O Vital Sign - Last 24 Hours 07/04/20 07/04/20 07/04/20 07/04/20 17:37 19:00 20:00 21:04 Temp 98.6 98.6 Pulse 75 Resp 18 21 B/P (MAP) 156/91 (112) Pulse Ox 96 O2 Delivery Room Air Room Air Bi-pap BiPAP/CPAP 07/04/20 07/04/20 07/05/20 07/05/20 21:34 23:00 03:00 07:15 Temp 98.0 97.5 97.4 98.0 97.5 97.4 Pulse 73 55 58 Resp 20 20 20 18 B/P (MAP) 148/76 (100) 147/90 (109) 142/92 (109) Pulse Ox 93 98 97 O2 Delivery BiPAP/CPAP Room Air Room Air Room Air 07/05/20 07/05/20 08:00 11:35 Temp 98.4 98.4 Pulse 68 Resp 20 B/P (MAP) 140/85 (103) Pulse Ox 95 O2 Delivery Room Air Room Air Intake and Output 07/04/20 07/04/20 07/05/20 15:00 23:00 07:00 Intake Total 200 ml 200 ml 200 ml Output Total 1425 ml 250 ml 300 ml Balance -1225 ml -50 ml -100 ml Justifications for Admission Other Justification RYLEY FOSTER MD Jul 05, 2020 14:20
[2020-07-05 15:10] VITALS: BP 157/97
[2020-07-05] MEDS: POTASSIUM CHLORIDE 20 MEQ TABLET.ER. PO SCH (16:52)
--- NOTE | 2020-07-05 16:56 | CARD ---
MR#: [id number] Date of Study: 07/05/2020 Ordering Physician: SREEKANTH GREY, Referring Physician: SREEKANTH GREY, Tech: Corine Kathleen APPROVED REPORT EXAM: Two-dimensional and M-mode echocardiogram with Doppler and color Doppler. Other Information Quality : FairHR: 76bpm Technically limited study due to body habitus. INDICATION Dyspnea Chest Pain Congestive Heart Failure RISK FACTORS Hypertension Hyperlipidemia 2D DIMENSIONS RVDd2.4 (2.9-3.5cm)Left Atrium(2D)3.8 (1.6-4.0cm) IVSd1.2 (0.7-1.1cm)Aortic Root(2D)3.2 (2.0-3.7cm) LVDd4.9 (3.9-5.9cm)LVOT Diameter2.2 (1.8-2.4cm) PWd1.2 (0.7-1.1cm)LVDs3.3 (2.5-4.0cm) FS (%) 30.3 %SV58.6 ml Aortic Valve AoV Peak Yusuf.112.6cm/sAoV VTI27.3cm AO Peak GR.5.1mmHgLVOT VTI 23.21cm AO Mean GR.3mmHg Mitral Valve MV E Cwtcvjje60.2cm/sMV E Peak Gr.3mmHg MV DECEL [id number] A Zlokudno72.6cm/s MV E Mean Gr.1mmHgE/A Ratio1.1 TDI Lateral E' P. V7.79cm/sMedial E' P. V8.56cm/s E/Lateral E'11.6E/Medial E'10.5 Tricuspid Valve TR P. Rdtiiykg083jk/sRAP [id number] TR Peak Gr.37mrYqIDWB45smWa Pulmonary Vein S1 Bbvvxaez69.5cm/sS2 Lmhzjdqa66.49cm/s D2 Edkaioeq04.5cm/sPVa [id number] LEFT VENTRICLE The left ventricle is normal size. There is mild concentric left ventricular hypertrophy. The left ve ntricular systolic function is low normal. The Ejection Fraction is estimated at 50%. There is normal LV segmental wall motion. The left ventricular diastolic function and filling is normal for age. RIGHT VENTRICLE The right ventricle is normal size. There is normal right ventricular wall thickness. The right ventr icular systolic function is normal. ATRIA The left atrium is borderline dilated. The right atrium is mildly dilated. The interatrial septum is intact with no evidence for an atrial septal defect or patent foramen ovale as noted on 2-D or Dopple r imaging. AORTIC VALVE The aortic valve is normal in structure and function. Doppler and Color Flow revealed no significant aortic regurgitation. There is no significant aortic valvular stenosis. Calculated aortic valve area is 3.57 cm2 with maximum pressure gradient of 6 mmHg and mean pressure gradient of 3 mmHg. MITRAL VALVE The mitral valve is normal in structure and function. There is no evidence of mitral valve prolapse. There is no mitral valve stenosis. Doppler and Color Flow revealed no mitral valve regurgitation note d. TRICUSPID VALVE The tricuspid valve is not well visualized. Doppler and Color Flow revealed trace tricuspid regurgita tion with an estimated PAP of 27 mmHg. There is no tricuspid valve stenosis. PULMONIC VALVE The pulmonic valve is not well visualized. Doppler and Color Flow revealed trace pulmonic valvular re gurgitation. GREAT VESSELS The aortic root is normal in size. The IVC is dilated. PERICARDIAL EFFUSION There is no evidence of significant pericardial effusion. Critical Notification Critical Value: No <Conclusion> The left ventricle is normal size. The left ventricular systolic function is low normal. The Ejection Fraction is estimated at 50%. There is mild concentric left ventricular hypertrophy. Doppler and Color Flow revealed no significant aortic regurgitation. There is no significant aortic valvular stenosis. Calculated aortic valve area is 3.57 cm2 with maximum pressure gradient of 6 mmHg and mean pressure g radient of 3 mmHg. Doppler and Color Flow revealed no mitral valve regurgitation noted. Doppler and Color Flow revealed trace tricuspid regurgitation with an estimated PAP of 27 mmHg. Signed by : Sreekanth Grey MD Electronically Approved : 07/05/2020 16:55:43
[2020-07-05] MEDS: ACETAMINOPHEN 500 MG TABLET PO PRN (17:04)
[2020-07-05] MEDS ORDERED: ONDANSETRON PF 4 MG/2 ML VIAL. IVP PRN (18:00)
[2020-07-05] MEDS ORDERED: ONDANSETRON ODT 4 MG TAB.RAPDIS. PO PRN (18:00)
--- NOTE | 2020-07-05 18:18 | PDOC ---
[employer] PROGRESS NOTE Date of Service DOS: DATE: 07/05/20 TIME: 18:13 Chief Complaint Chief Complaint Chest pain concerning for unstable angina versus non-STEMI rule out ACS Acute severe hypokalemia Transaminitis due to hepatic steatosis. Troponinemia Chronic CHF MANUELA continue CPAP with personal home device Morbid obesity Status post gastric bypass IV Zofran for nausea vomiting Continue IV potassium replacement will give total of 120 mEq today Heart score = 4 Troponinemia Continue aspirin, consider Plavix if intermediate risk will defer this to cardio logy Cardiology consulted for predischarge stress testing or left heart cath Continue nitroglycerin as needed for pain Continue beta-william if blood pressures allow Continue high intensity statins IV morphine as needed Restart home medications Continue nocturnal CPAP Maintain O2 sats between 88 to 95% Trend troponins Repeat EKG in the a.m. Continue telemetry monitoring Monitor for electrolyte abnormalities Avoid NSAIDs Lovenox for DVT prophylaxis Pepcid GI prophylaxis ADA diet Full code Discussed with RN and SW Disposition pending cardiology evaluation Surrogate decision maker is Sonal Field History of Present Illness History of Present Illness 41-year-old male with past medical history of hypertension, morbid obesity status post gastric bypass, CHF, MANUELA on CPAP who presents with complaints of shortness of breath and chest pressure 3 hours prior to arrival. Patient also states that he did drink a pint of whiskey before his episode of chest pain. Patient states that the pain is difficult to explain it does occur substernal and does not radiate but mainly stays in the middle of his chest. He does endorse shortness of breath associated with the chest pain. Denies orthopnea but states that the chest pressure is worse when he does lie supine. Denies fevers, syncope, nausea vomiting, abdominal pain. 07/05/2020 No acute events overnight. Patient seen and examined bedside. Patient had episodes of nausea vomiting in the afternoon. Zofran IV was given. Patient's chart, labs, images were reviewed and discussed with RN Vitals/I&O Vitals/I&O: Vital Signs Date Time Temp Pulse Resp B/P (MAP) Pulse Ox O2 Delivery O2 Flow Rate FiO2 07/05/20 15:10 98.4 65 19 157/97 (117) 97 Room Air 98.4 I & O 07/04/20 07/04/20 07/05/20 15:00 23:00 07:00 Intake Total 200 ml 200 ml 200 ml Output Total 1425 ml 250 ml 300 ml Balance -1225 ml -50 ml -100 ml Physical Exam Physical Exam: GEN: No apparent distress. Alert and oriented. Obese HEENT: Normal cephalic, atraumatic, external auditory canals are patent EYES: Extraocular muscles are intact, pupil are equally round and reactive to light and accommodation MUSCULOSKELETAL: Well developed , well nourished, good range of motion ENDOCRINE: No thyromegaly was palpated LYMPHATICS: No cervical chain or axillary nodes were noted HEMATOPOIETIC: No bruising NECK: Supple, no JVD, no thyromegaly was noted LUNGS: Clear to auscultation in all lung caro without rhonchi or wheezing HEART: RRR, S!, S2 present. Peripheral pulses intact, no obvious murmurs noted ABDOMEN: Obese soft, nontender. Positive bowel sounds, no organomegaly, normal bowel sounds EXTREMITIES: Without clubbing, cyanosis, or edema. Pedal pulses intact. Negative Homans sign NEUROLOGIC: Normal speech and tone. A&O x 3, moves all extremities, no obvious focal deficits PSYCHIATRIC: Normal affect, normal mood. Stable SKIN: No ulcerations or rashes, good skin turgor, no jaundice VASCULAR: Good capillary refill, neurovascular bundle appears to be intact General: No acute distress Heart: Regular rate Lungs: Clear, Other Abdomen: Normal bowel sounds Labs Labs: Laboratory Tests Test 07/05/20 04:00 White Blood Count 4.8 x10^3/uL (4.0-11.0) Red Blood Count 4.69 x10^6/uL (4.30-5.70) Hemoglobin 12.8 g/dL (13.0-17.5) Hematocrit 38.7 % (39.0-53.0) Mean Corpuscular Volume 83 fL (79-100) Mean Corpuscular Hemoglobin 27 pg (25-35) Mean Corpuscular Hemoglobin Concent 33 g/dL (31-37) Red Cell Distribution Width 17.0 % (11.5-14.5) Platelet Count 218 x10^3/uL (140-400) Neutrophils (%) (Auto) 54 % (31-73) Lymphocytes (%) (Auto) 32 % (24-48) Monocytes (%) (Auto) 10 % (0-9) Eosinophils (%) (Auto) 3 % (0-3) Basophils (%) (Auto) 0 % (0-3) Neutrophils # (Auto) 2.6 x10^3/uL (1.8-7.7) Lymphocytes # (Auto) 1.5 x10^3/uL (1.0-4.8) Monocytes # (Auto) 0.5 x10^3/uL (0.0-1.1) Eosinophils # (Auto) 0.2 x10^3/uL (0.0-0.7) Basophils # (Auto) 0.0 x10^3/uL (0.0-0.2) Sodium Level 141 mmol/L (136-145) Potassium Level 2.9 mmol/L (3.5-5.1) Chloride Level 103 mmol/L (98-107) Carbon Dioxide Level 30 mmol/L (21-32) Anion Gap 8 (6-14) Blood Urea Nitrogen 17 mg/dL (8-26) Creatinine 1.1 mg/dL (0.7-1.3) Estimated GFR (Cockcroft-Gault) 73.1 Glucose Level 96 mg/dL (70-99) Calcium Level 8.3 mg/dL (8.5-10.1) Phosphorus Level 3.4 mg/dL (2.6-4.7) Magnesium Level 2.3 mg/dL (1.8-2.4) Troponin I Quantitative 0.045 ng/mL (0.000-0.055) Triglycerides Level 192 mg/dL (0-150) Cholesterol Level 198 mg/dL (0-200) LDL Cholesterol, Calculated 111 mg/dL (0-100) VLDL Cholesterol, Calculated 38 mg/dL (0-40) Non-HDL Cholesterol Calculated 149 mg/dL (0-129) HDL Cholesterol 49 mg/dL (40-60) Cholesterol/HDL Ratio 4.0 Assessment and Plan Assessmemt and Plan Problems Medical Problems: (1) Alcohol intoxication Status: Acute (2) Chest pain Status: Acute Comment Review of Relevant I have reviewed the following items andreia (where applicable) has been applied. Medications: Current Medications Medications (Trade) Dose Ordered Sig/Josh Route PRN Reason Start Time Stop Time Status Last Admin Dose Admin Miscellaneous (Lidoderm Patch Removal) 1 ea [facility] 07/04/20 21:00 07/04/20 21:00 Enoxaparin Sodium (Lovenox 60mg Syringe) 60 mg Q12HR SQ 07/04/20 21:00 07/05/20 08:49 Pantoprazole Sodium (Protonix) 40 mg DAILYAC PO 07/05/20 07:30 07/05/20 08:49 Aspirin (Tye Aspirin) 325 mg DAILYWBKFT PO 07/05/20 08:00 07/05/20 08:49 Potassium Chloride/Water 100 ml @ 100 mls/hr Q1H IV 07/05/20 16:30 07/05/20 22:29 07/05/20 16:47 Potassium Chloride (Klor-Con) 40 meq TIDWMEALS PO 07/05/20 17:00 07/05/20 16:52 Ondansetron HCl (Zofran) 4 mg PRN Q6HRS PRN IVP NAUSEA/VOMITING 07/05/20 18:00 07/05/20 18:06 Justifications for Admission Other Justification MAO CLINE MD Jul 05, 2020 18:18
[2020-07-05 19:00] VITALS: BP 139/80
[2020-07-05] MEDS: MORPHINE SULFATE 2 MG/ML VIAL. IV PRN (19:24)
[2020-07-05] MEDS: PATCH REMOVAL. MC SCH (21:00)
[2020-07-05 23:00] VITALS: BP 127/79
[2020-07-06] MEDS: POTASSIUM CHLORIDE 10MEQ 100 ML IV SCH ×3 (00:21→06:03)
[2020-07-06 03:05] VITALS: BP 141/85
[2020-07-06 07:00] VITALS: BP 141/86
[2020-07-06] MEDS: PANTOPRAZOLE 40 MG TABLET.DR. PO SCH (09:32)
[2020-07-06] MEDS: ASPIRIN 325 MG TABLET PO SCH (09:33)
[2020-07-06] MEDS: POTASSIUM CHLORIDE 20 MEQ TABLET.ER. PO SCH ×2 (09:33→11:58)
[2020-07-06] MEDS: LIDOCAINE (700MG/PATCH) PATCH. TD SCH (09:35)
[2020-07-06 10:44] VITALS: BP 133/76
--- NOTE | 2020-07-06 11:04 | EKG ---
[address] [place] [address] Test Date: 2020-07-03 Test Time: 20:14:53 Pat Name: FABIOLA MCQUEEN Department: Room: Gender: M Pathologist: [id number] : 1975 Requested By: VINAY CARVALHO Order Number: [id number] Reading MD: Measurements Intervals [place] Rate: 64 P: -23 MN: 182 QRS: 88 QRSD: 90 T: 14 QT: 394 QTc: 410 Interpretive Statements SINUS RHYTHM NO SPECIFIC ECG ABNORMALITIES RI6.02 Compared to ECG 07/03/2020 19:11:58 No significant changes
--- NOTE | 2020-07-06 12:03 | PDOC ---
[employer] [facility] PROGRESS NOTE Date of Service DOS: DATE: 07/06/20 TIME: 12:02 Chief Complaint Chief Complaint Chest pain concerning for unstable angina versus non-STEMI rule out ACS Acute severe hypokalemia Transaminitis due to hepatic steatosis. Troponinemia Chronic CHF MANUELA continue CPAP with personal home device Morbid obesity Status post gastric bypass Pepcid GI prophylaxis ADA diet Full code Discussed with RN and SW Disposition pending cardiology evaluation Surrogate decision maker is Sonal Field History of Present Illness History of Present Illness Mr Chacko is a 41-year-old male with past medical history of hypertension, morbid obesity status post gastric bypass, CHF, MANUELA on CPAP who presents with complaints of shortness of breath and chest pressure 3 hours prior to arrival. Patient also states that he did drink a pint of whiskey before his episode of chest pain. Patient states that the pain is difficult to explain it does occur substernal and does not radiate but mainly stays in the middle of his chest. He does endorse shortness of breath associated with the chest pain. Denies orthopnea but states that the chest pressure is worse when he does lie supine. Denies fevers, syncope, nausea vomiting, abdominal pain. 07/05: No acute events overnight. Patient seen and examined bedside. Patient had episodes of nausea vomiting in the afternoon. Zofran IV was given. K 2.9 Labs pending today. He is feeling much better today. Asking to go home. No swelling or SOB. No CP or nausea/vomiting. Vitals/I&O Vitals/I&O: Vital Signs Date Time Temp Pulse Resp B/P (MAP) Pulse Ox O2 Delivery O2 Flow Rate FiO2 07/06/20 10:44 98.0 58 19 133/76 (95) 98 Room Air 98.0 I & O 07/05/20 07/05/20 07/06/20 15:00 23:00 07:00 Intake Total 400 ml 180 ml Output Total 120 ml 900 ml Balance 280 ml 180 ml -900 ml Physical Exam Physical Exam: GEN: No apparent distress. Alert and oriented. Obese HEENT: Normal cephalic, atraumatic, external auditory canals are patent EYES: Extraocular muscles are intact, pupil are equally round and reactive to light and accommodation MUSCULOSKELETAL: Well developed , well nourished, good range of motion ENDOCRINE: No thyromegaly was palpated LYMPHATICS: No cervical chain or axillary nodes were noted HEMATOPOIETIC: No bruising NECK: Supple, no JVD, no thyromegaly was noted LUNGS: Clear to auscultation in all lung caro without rhonchi or wheezing HEART: RRR, S!, S2 present. Peripheral pulses intact, no obvious murmurs noted ABDOMEN: Obese soft, nontender. Positive bowel sounds, no organomegaly, vidal l bowel sounds EXTREMITIES: Without clubbing, cyanosis, or edema. Pedal pulses intact. Negative Homans sign NEUROLOGIC: Normal speech and tone. A&O x 3, moves all extremities, no obvious focal deficits PSYCHIATRIC: Normal affect, normal mood. Stable SKIN: No ulcerations or rashes, good skin turgor, no jaundice VASCULAR: Good capillary refill, neurovascular bundle appears to be intact General: No acute distress Heart: Regular rate Lungs: Clear, Other Abdomen: Normal bowel sounds Assessment and Plan Assessmemt and Plan Problems Medical Problems: (1) Alcohol intoxication Status: Acute (2) Chest pain Status: Acute Comment Review of Relevant I have reviewed the following items andreia (where applicable) has been applied. Medications: Current Medications Medications (Trade) Dose Ordered Sig/Josh Route PRN Reason Start Time Stop Time Status Last Admin Dose Admin Potassium Chloride/Water 100 ml @ 100 mls/hr Q1H IV 07/05/20 16:30 07/05/20 22:29 DC 07/05/20 09:20 Potassium Chloride (Klor-Con) 40 meq TIDWMEALS PO 07/05/20 17:00 07/06/20 11:58 Ondansetron HCl (Zofran) 4 mg PRN Q6HRS PRN IVP NAUSEA/VOMITING 07/05/20 18:00 07/05/20 18:06 Justifications for Admission Other Justification BAMBI CROWELL MD Jul 06, 2020 12:03
--- NOTE | 2020-07-06 14:25 | PDOC3 ---
Discharge Summary Visit Information Date of Admission: Jul 04, 2020 Date of Discharge: Jul 06, 2020 Admitting Diagnosis: Chest pain Final Diagnosis Problems Medical Problems: (1) Alcohol intoxication Status: Acute (2) Chest pain Status: Acute Brief Hospital Course Allergies Allergies Coded Allergies Type Severity Reaction Last Updated Verified No Known Drug Allergies 10/27/14 No Vital Signs Vital Signs Date Time Temp Pulse Resp B/P (MAP) Pulse Ox O2 Delivery O2 Flow Rate FiO2 07/06/20 10:44 98.0 58 19 133/76 (95) 98 Room Air 98.0 Lab Results Laboratory Tests Test 07/05/20 04:00 White Blood Count 4.8 x10^3/uL (4.0-11.0) Red Blood Count 4.69 x10^6/uL (4.30-5.70) Hemoglobin 12.8 g/dL (13.0-17.5) Hematocrit 38.7 % (39.0-53.0) Mean Corpuscular Volume 83 fL (79-100) Mean Corpuscular Hemoglobin 27 pg (25-35) Mean Corpuscular Hemoglobin Concent 33 g/dL (31-37) Red Cell Distribution Width 17.0 % (11.5-14.5) Platelet Count 218 x10^3/uL (140-400) Neutrophils (%) (Auto) 54 % (31-73) Lymphocytes (%) (Auto) 32 % (24-48) Monocytes (%) (Auto) 10 % (0-9) Eosinophils (%) (Auto) 3 % (0-3) Basophils (%) (Auto) 0 % (0-3) Neutrophils # (Auto) 2.6 x10^3/uL (1.8-7.7) Lymphocytes # (Auto) 1.5 x10^3/uL (1.0-4.8) Monocytes # (Auto) 0.5 x10^3/uL (0.0-1.1) Eosinophils # (Auto) 0.2 x10^3/uL (0.0-0.7) Basophils # (Auto) 0.0 x10^3/uL (0.0-0.2) Sodium Level 141 mmol/L (136-145) Potassium Level 2.9 mmol/L (3.5-5.1) Chloride Level 103 mmol/L (98-107) Carbon Dioxide Level 30 mmol/L (21-32) Anion Gap 8 (6-14) Blood Urea Nitrogen 17 mg/dL (8-26) Creatinine 1.1 mg/dL (0.7-1.3) Estimated GFR (Cockcroft-Gault) 73.1 Glucose Level 96 mg/dL (70-99) Calcium Level 8.3 mg/dL (8.5-10.1) Phosphorus Level 3.4 mg/dL (2.6-4.7) Magnesium Level 2.3 mg/dL (1.8-2.4) Troponin I Quantitative 0.045 ng/mL (0.000-0.055) Triglycerides Level 192 mg/dL (0-150) Cholesterol Level 198 mg/dL (0-200) LDL Cholesterol, Calculated 111 mg/dL (0-100) VLDL Cholesterol, Calculated 38 mg/dL (0-40) Non-HDL Cholesterol Calculated 149 mg/dL (0-129) HDL Cholesterol 49 mg/dL (40-60) Cholesterol/HDL Ratio 4.0 Brief Hospital Course Mr Chacko is a 41-year-old male with past medical history of hypertension, morbid obesity status post gastric bypass, CHF, MANUELA on CPAP who presents with complaints of shortness of breath and chest pressure 3 hours prior to arrival. Patient also states that he did drink a pint of whiskey before his episode of chest pain. Patient states that the pain is difficult to explain it does occur substernal and does not radiate but mainly stays in the middle of his chest. He does endorse shortness of breath associated with the chest pain. Denies orthopnea but states that the chest pressure is worse when he does lie supine. Denies fevers, syncope, nausea vomiting, abdominal pain. 07/05: No acute events overnight. Patient seen and examined bedside. Patient had episodes of nausea vomiting in the afternoon. Zofran IV was given. K 2.9 Echo with concentric left ventricular hypertrophy normal aortic valve elevations in RVSP. Normal ejection fraction. He is feeling much better today. Asking to go home. No swelling or SOB. No CP or nausea/vomiting. Understands taking alcohol with diuretics can be life- threatening and alcoholic gastritis can occur due to heavy ETOH use. Consults: Cardiology Problem list: Chest pain concerning for unstable angina versus non-STEMI rule out ACS Acute severe hypokalemia Transaminitis due to hepatic steatosis. Troponinemia Chronic CHF MANUELA continue CPAP with personal home device Morbid obesity Status post gastric bypass Greater than 30 minutes spent on d/c home Discharge Information Condition at Discharge: Improved Follow Up: Weeks (1) Disposition/Orders: D/C to Home Scheduled Amlodipine Besylate (Amlodipine Besylate) 10 Mg Tablet, 10 MG PO DAILY, (Reported) Entered as Reported by: CHRIS JACKSON on 10/27/14 1214 Furosemide (Lasix) 20 Mg Tablet, 1 TAB PO DAILY for 30 Days, #30 Ref 0 (Reported) Entered as Reported by: TIMMY BROTHERS on 07/04/20922 Last Action: New Order on 07/04/20922 by TIMMY BROTHERS Hydralazine Hcl (Hydralazine Hcl) 50 Mg Tablet, 1 TAB PO PRN, #90 Ref 5 (Reported) Entered as Reported by: TIMMY BROTHERS on 07/04/20922 Last Action: New Order on 07/04/20922 by TIMMY BROTHERS Losartan/Hydrochlorothiazide (Losartan-Hctz 100-25 Mg Tab) 1 Each Tablet, 1 EACH PO DAILY, (Reported) Entered as Reported by: CHRIS JACKSON on 10/27/14 1214 Scheduled PRN [BC Headache Powder] , 1 PACKET PO PRN TID PRN for HEADACHE, (Reported) Entered as Reported by: CHRIS JACKSON on 10/27/14 1529 Justicifation of Admission Dx: Justifications for Admission: Justification of Admission Dx: Yes Chronic Renal Failure: Electrolyte Abnormality Angina: Cresendo Worsening of Sym BAMBI CROWELL MD Jul 06, 2020 14:25
[2020-07-06] MEDS ORDERED: POTA20TA4 PO ×2 (14:26→17:36)
[2020-07-06] MEDS ORDERED: PANT40TA77 PO ×2 (14:26→17:36)
[2020-07-06 15:14] VITALS: BP 117/74
[2020-07-06] MEDS ORDERED: POTASSIUM CHLORIDE 20 MEQ TABLET.ER. PO ONE (16:00)
--- NOTE | 2020-07-06 17:13 | NUR ---
Discharge instructions given to patient regarding following up with his primary care physician and director supplier quality. Education given over chest pain, hypokalemia, and medications. Patient verbalizes understanding.
--- NOTE | 2020-07-06 17:32 | NUR ---
SW following. Spoke with RN and reviewed chart. Pt to discharge home today with no needs from SW per RN. Pt COVID negative on room air and oral medications. No further SW needs.
== END 2020-07-06 17:15 | disposition home or self-care (01) | DRG 311 ==
LOC: ER 20:00 → 6 SOUTH 07-04 00:57 → ED HOLD 07-04 01:08 → 6 SOUTH 07-04 17:16
PROVIDERS: ADMIT Family Medicine; ATTEND Family Medicine
DX: I24.9 Acute ischemic heart disease, unspecified (principal); Z68.44 Body mass index [BMI] 60.0-69.9, adult; E66.01 Morbid (severe) obesity due to excess calories; E78.00 Pure hypercholesterolemia, unspecified; E78.5 Hyperlipidemia, unspecified; E87.6 Hypokalemia; F10.129 Alcohol abuse with intoxication, unspecified; G47.33 Obstructive sleep apnea (adult) (pediatric); I11.0 Hypertensive heart disease with heart failure; I50.9 Heart failure, unspecified; Y90.8 Blood alcohol level of 240 mg/100 ml or more; K76.0 Fatty (change of) liver, not elsewhere classified; Z82.49 Family history of ischemic heart disease and other diseases of the circulatory system; Z87.891 Personal history of nicotine dependence; Z98.84 Bariatric surgery status
CPT/HCPCS: 36415; 71045; 71275; 80048; 80053; 80061; 83690; 83735; 83880; 84100; 84132; 84484; 85025; 93005; 93306; 96365; 96366; 96367; 96375; 99285; G0480; J1650; J2270; J2405; J3475; J3480; J7120; Q9967; G0378